=== PATIENT | male | born 1995 | race Caucasian/White ===

== ENCOUNTER 2023-09-05 16:50 | Outpatient (CLI) | payer BC, SELFPAY | END 2023-09-05 16:51 | disposition home or self-care (01) | PROVIDERS: PCP Internal Medicine; Visit Provider Internal Medicine | DX: R10.9 Unspecified abdominal pain (principal) | CPT/HCPCS: 80053; 82150 ==

== ENCOUNTER 2023-09-19 15:59 | Outpatient (CLI) | payer BC, SELFPAY ==
--- NOTE | 2023-09-19 16:00 | CRLHL7_ITS ---
For Patients: As a result of the Century Cures Act, medical imaging exams and procedure reports are released immediately into your electronic medical record. You may view this report before your referring provider. If you have questions, please contact your health care provider. INDICATION: Sharp abdominal pain. TECHNIQUE: CT abdomen and pelvis acquired with 95 mL Isovue 370 IV contrast. COMPARISON: None. FINDINGS: Lower chest: Left-sided gynecomastia. Liver: Unremarkable. Normal in size and attenuation. No masses. Gallbladder and bile ducts: Unremarkable. No stones or inflammation. No biliary dilatation. Pancreas: Unremarkable. No mass or inflammation. Spleen: Enlarged at 16.9 cm in length no masses. Adrenal glands: Unremarkable. No nodules. Kidneys: Unremarkable. No masses, stones, or hydronephrosis. GI tract: Unremarkable. Normal in caliber. No sign of mass or inflammation. Normal appendix. Vasculature: Unremarkable. Mesenteric arteries are patent. Lymph nodes: No lymphadenopathy. Omentum/Peritoneum/Abdominal Wall: Unremarkable. No sign of mass or infiltration. No free air or significant free fluid. Pelvis: Unremarkable. Bones: Unremarkable for age. IMPRESSION: 1. Splenomegaly. 2. Left-sided gynecomastia. Please note that all CT scans at this facility use dose modulation, iterative reconstruction, and/or weight-based dosing when appropriate to reduce radiation dose to as low as reasonably achievable. Dictated by Rick Kirkpatrick MD @ 09/20/2023 11:17:41 AM (Electronically Signed)
== END 2023-09-19 16:00 | disposition home or self-care (01) ==
PROVIDERS: PCP Internal Medicine; Visit Provider Internal Medicine
DX: R10.9 Unspecified abdominal pain (principal); R16.1 Splenomegaly, not elsewhere classified; N62 Hypertrophy of breast
CPT/HCPCS: 74177; Q9967

== ENCOUNTER 2024-05-03 15:47 | Outpatient (CLI) | payer BC, SELFPAY ==
--- NOTE | 2024-05-03 16:00 | CRLHL7_ITS ---
For Patients: As a result of the Century Cures Act, medical imaging exams and procedure reports are released immediately into your electronic medical record. You may view this report before your referring provider. If you have questions, please contact your health care provider. Indication: Chronic sinusitis. Technique: Noncontrast axial CT of the paranasal sinuses with coronal reformats are provided. No comparisons. Findings: Minor mucosal thickening within the floor and medial aspect of the maxillary sinuses. The remainder of the visualized paranasal sinuses are clear. The ostiomeatal complexes are patent bilaterally. The visualized intraorbital contents appear within normal limits. Moderate rightward nasal septal deviation with prominent bony spur that nearly contacts the medial wall of the right maxillary sinus. Impression: 1. Minor inflammatory change within the maxillary sinuses. 2. Moderate rightward nasal septal deviation. Please note that all CT scans at this facility use dose modulation, iterative reconstruction, and/or weight-based dosing when appropriate to reduce radiation dose to as low as reasonably achievable. Dictated by Tremaine Mariano MD @ 05/04/2024 6:43:19 PM (Electronically Signed)
== END 2024-05-03 15:48 | disposition home or self-care (01) ==
LOC: CT 15:50
PROVIDERS: PCP Internal Medicine; Visit Provider Internal Medicine
DX: J32.9 Chronic sinusitis, unspecified (principal); J34.2 Deviated nasal septum
CPT/HCPCS: 70486